=== PATIENT | male | born 1960 | race Caucasian/White ===

== ENCOUNTER 2018-04-23 07:04 | Outpatient (CLI) | payer OTHER, SELFPAY ==
[2018-04-23 07:50] LABS: Hemoglobin A1C 7.2 % (4.5-6.2)
[2018-04-23 08:27] LABS: Anion Gap 9.9 mmol/L (3-11); BUN 17 mg/dL (7-18); CO2 26.1 mmol/L (21.0-32.0); CREATININE 1.25 mg/dL (0.70-1.30); Calcium 9.1 mg/dL (8.5-10.1); Chloride 102 mmol/L (98-107); Estimated GFR 59.32 (mL/min/1.73m2); Glucose 155 mg/dL (70-100); Potassium 4.5 mmol/L (3.5-5.1); Sodium 138 mmol/L (136-145)
== END 2018-04-23 07:24 ==
PROVIDERS: PCP Nurse Practitioner Family; Visit Provider Nurse Practitioner Family
DX: E11.3 Type 2 diabetes mellitus with ophthalmic complications (principal)
CPT/HCPCS: 36415; 80048; 83036

== ENCOUNTER 2018-12-05 11:12 | Outpatient (CLI) | payer OTHER, SELFPAY ==
[2018-12-05 14:14] LABS: Hemoglobin A1C 7.4 % (4.5-6.2)
[2018-12-05 14:39] LABS: ALT 35 U/L (12-78); AST 20 U/L (15-37); Albumin 4.1 g/dL (3.4-5.0); Alkaline Phosphatase 66 U/L (46-116); Anion Gap 9.7 mmol/L (3-11); BUN 12 mg/dL (7-18); Bilirubin, Total 0.3 mg/dL (0.2-1.0); CO2 28.3 mmol/L (21.0-32.0); CREATININE 1.11 mg/dL (0.70-1.30); Chloride 102 mmol/L (98-107); Cholesterol 257 mg/dL (50-200); Glucose 148 mg/dL (70-100); HDL Cholesterol 40 mg/dL (40-60); Potassium 4.3 mmol/L (3.5-5.1); Sodium 140 mmol/L (136-145); Total Protein 8.1 g/dL (6.4-8.2); Triglyceride 434 mg/dL (30-150)
[2018-12-05 14:51] LABS: LDL CHOLESTEROL 154 mg/dL (<100)
== END 2018-12-05 11:32 ==
PROVIDERS: Visit Provider Nurse Practitioner Family
DX: E11.42 Type 2 diabetes mellitus with diabetic polyneuropathy (principal)
CPT/HCPCS: 36415; 80053; 80061; 83721; 83036

== ENCOUNTER 2019-04-25 07:02 | Outpatient (CLI) | payer OTHER, SELFPAY ==
[2019-04-25 07:50] LABS: Hemoglobin A1C 6.5 % (4.5-6.2)
[2019-04-25 08:19] LABS: ALT 28 U/L (16-63); AST 13 U/L (15-37); Albumin 4.1 g/dL (3.4-5.0); Alkaline Phosphatase 59 U/L (46-116); Anion Gap 9.8 mmol/L (3-11); BUN 19 mg/dL (7-18); Bilirubin, Total 0.3 mg/dL (0.2-1.0); CO2 29.2 mmol/L (21.0-32.0); CREATININE 1.29 mg/dL (0.70-1.30); Calcium 9.2 mg/dL (8.5-10.1); Calculated LDL 173 mg/dL; Chloride 103 mmol/L (98-107); Cholesterol 241 mg/dL (50-200); Estimated GFR 57.01 (mL/min/1.73m2); Glucose 115 mg/dL (70-100); HDL Cholesterol 46 mg/dL (40-60); Sodium 142 mmol/L (136-145); Total Protein 8.1 g/dL (6.4-8.2); Triglyceride 113 mg/dL (30-150)
== END 2019-04-25 07:22 ==
PROVIDERS: PCP Nurse Practitioner Family; Visit Provider Nurse Practitioner Family
DX: E11.42 Type 2 diabetes mellitus with diabetic polyneuropathy (principal)
CPT/HCPCS: 36415; 80053; 80061; 83036

== ENCOUNTER 2019-07-28 07:03 | Outpatient (CLI) | payer OTHER, SELFPAY ==
[2019-07-28 08:07] LABS: Creatine Kinase 93 U/L (39-308)
[2019-07-28 08:12] LABS: Hemoglobin A1C 6.7 % (3.8-5.6)
== END 2019-07-28 07:23 ==
PROVIDERS: PCP Nurse Practitioner Family; Visit Provider Nurse Practitioner Family
DX: E78.5 Hyperlipidemia, unspecified (principal); E11.42 Type 2 diabetes mellitus with diabetic polyneuropathy
CPT/HCPCS: 36415; 82550; 83036

== ENCOUNTER 2019-08-01 10:27 | Outpatient (CLI) | payer OTHER, SELFPAY ==
--- NOTE | 2019-08-01 09:45 | DI.RAD_ITS ---
EXAM: XR KNEE LT 3V AP,LAT,LES INDICATION: left knee pain. COMPARISON: No previous for comparison. TECHNIQUE: 2D digital imaging was performed. FINDINGS: There are degenerative changes of the left knee characterized by moderately severe narrowing of the l ateral femoral tibial joint space and periarticular spurring of the patellofemoral joint and the late ral femoral tibial joint. Coarse calcification is seen centrally in the distal shaft of the left fem ur most suggestive of a benign lesion such as an enchondroma or bone infarct. There is a suprapatell ar joint effusion. Vascular calcifications are present. IMPRESSION: Osteoarthritis of the left knee.
--- NOTE | 2019-08-01 09:45 | DI.RAD_ITS ---
EXAM: XR HIP LT 1V INDICATION: left hip pain. COMPARISON: XR HIP RT COMPLETE AP PELVIS from 08/01/2019 TECHNIQUE: 2D digital imaging was performed. FINDINGS: A single view of the left hip was obtained. Degenerative changes are seen of the left hip characteri zed by subchondral sclerosis, periarticular spurring and subchondral cysts. The soft tissues are unr emarkable. IMPRESSION: Degenerative changes of the left hip.
--- NOTE | 2019-08-01 09:45 | DI.RAD_ITS ---
EXAM: XR KNEE RT 3V AP,LAT,LES INDICATION: right knee pain. COMPARISON: No exams were available for comparison TECHNIQUE: 2D digital imaging was performed. FINDINGS: The bones are intact and normally mineralized. The articular surfaces are well maintained. No acute fracture or dislocation is seen. There is a well corticated osseous density medial to the medial f emoral condyle. This likely reflects chronic injury. There is an enthesophyte at the superior sue la. There is a tiny density in the suprapatellar soft tissues on the lateral view. This may represe nt a loose body. Vascular calcifications are seen in the soft tissues. IMPRESSION: 1. No acute abnormality. 2. Density seen in the suprapatellar soft tissues which may represent a loose body.
--- NOTE | 2019-08-01 09:45 | DI.RAD_ITS ---
EXAM: XR HIP RT COMPLETE AP PELVIS INDICATION: right hip pain. COMPARISON: No exams were available for comparison TECHNIQUE: 2D digital imaging was performed. FINDINGS: There are degenerative changes in the hips bilaterally characterized by joint space narrowing, subcho ndral sclerosis and periarticular spurring. The bones are intact. The soft tissues are unremarkable . Vascular calcifications are present.
== END 2019-08-01 10:47 ==
PROVIDERS: PCP Nurse Practitioner Family; Visit Provider Physician Assistant
DX: M25.551 Pain in right hip (principal); M25.552 Pain in left hip; M16.0 Bilateral primary osteoarthritis of hip; M25.561 Pain in right knee; M25.562 Pain in left knee; M25.462 Effusion, left knee; M17.12 Unilateral primary osteoarthritis, left knee; M23.41 Loose body in knee, right knee
CPT/HCPCS: 73562; 73501; 73502

== ENCOUNTER 2020-05-21 22:59 | Emergency (ER) | payer OTHER, SELFPAY ==
--- NOTE | 2020-05-21 00:50 | DI.CT_ITS ---
EXAM: CT BRAIN NECK CTA CLINICAL HISTORY: left posterior neck/head pain. TECHNIQUE: Imaging Protocol: Axial CT angiography was performed with multi-slice acquisition and mu lti-planar and/or 3D reconstructions. CONTRAST MATERIAL: Intravenous: Omnipaque 350 Contrast volume:structured data in ml COMPARISON: No exams were available for comparison FINDINGS: CT angiography of the cervical cranial region was performed according to the usual protocol with intr avenous infusion of 85 cc of Omnipaque 350.. Initial noncontrast scanning of the head is unremarkable. Visualized lung apices are clear. Visualized portions of thoracic aorta and pulmonary arterial circul ation are unremarkable. There is no evidence of a cervical mass or adenopathy. The tracheal laryngeal structures appear intact. The visualized aortic arch appears intact. The common carotid arteries are unremarkable bilaterally except for mild atheromatous calcification of the distal extent of the common carotids bilaterally wi thout stenosis. Internal carotid arteries are of normal diameter except for slight stenosis secondary to calcified at heromatous plaque of the proximal right internal carotid artery, less than 50 percent luminal diamete r stenosis, probably about 20 percent stenosis. The vertebral arteries are unremarkable in appearance in the cervical region with no evidence of aneu rysm, stenosis, or dissection. Intracranial portions of the internal carotid arteries appear normal except for mild atheromatous mian cification in their cavernous portions with no evidence of aneurysm, stenosis, or dissection. Intracranial vertebral arteries and basilar artery appear normal with no evidence of aneurysm, stenos is or dissection. No aneurysm identified in the region of the [id number]. The right anterior cerebral artery is supplied almost entirely across the anterior communicating artery. The right posterior cerebral jerrell ry is supplied almost entirely across the posterior communicating artery. Otherwise the anterior, mi ddle, and posterior cerebral arteries and major branches appear intact with no evidence of aneurysm, stenosis, or dissection. No enhancing brain lesion identified. IMPRESSION: Mild stenosis, less than 50 percent luminal diameter, of proximal right internal carotid artery. Oth erwise negative CT angiography of the cervical cranial region. RADIATION DOSE DELIVERED: 1,352mGy.cmTotal DLP 1,352mGy.cm Total DLP DATA REPOSITORY: All CT scans at this facility are submitted to the National Radiology Data Registry (NRDR) Dose Index Registry (DIR) with the [employer] (A[employer]). RADIATION OPTIMIZATION: All CT scans at this facility use at least one of these dose optimization te chniques: automated exposure control; mA and/or kV adjustment per patient size (includes targeted exa ms where dose is matched to clinical indication); or iterative reconstruction.
[2020-05-21 23:02] VITALS: BP 126/77; PULSE 89; RESP 14; TEMP 36.4; O2SAT 96
--- NOTE | 2020-05-21 23:06 | ED.GENADUL_ITS ---
Discharge Plan Disposition Patient Disposition: HOME Condition: Good Discharge Details Clinical Impression: Neck pain on left side Primary Care Provider: Viri Matos ED Provider: Marcus Roberts Home Meds and New Rx's Prescriptions: New diazepam 5 mg tablet 5 mg PO TID PRN (Reason: muscle spasm) Qty: 10 RF: 0 Continued verapamil 120 MG capsule,ext rel. pellets 24 hr 120 mg PO DAILY RF: 0 clobetasol-emollient 15 GM cream 15 gm Topical BID RF: 0 lamotrigine 25 MG tablet extended release 24hr 25 mg PO BID RF: 0 metformin [Glucophage] 1,000 MG tablet 1,000 mg PO BID RF: 0 atorvastatin 10 mg tablet 10 mg PO DAILY RF: 0 Discharge Instructions Instructions: Neck Pain (ED) Additional Instructions: CT scan looks good. No acute findings and no dissection of arteries. Suspect this is all muscle related as we discussed. Continue lidocaine and acetaminophen. Diazepam if needed for spasm/pain. Follow up with PCP next week. Return to ED if neurological changes, chest pain, other concerns. Referrals: Viri Matos [Primary Care Provider] - Medical Decision Making This is likely left trapzial strain/spasm especially at the insertion. Consider vertebral artery dissection since head/neck movement does not seem to make pain that much more severe. No neurological signs or symptoms. No rash. Will palce IV and get CTA head/neck. Treat with Valium which should not precipitate seizures and should help if related to muscle spasm as suspected. Kidney function is good. CTA head and neck obtained. Noncontrast CT unremarkable. CTA head and neck without significant stenosis, dissection, acute pathology. Patient better with the Valium. Will discharge home with prescription for Valium. Continue Tylenol and lidocaine as before. Follow-up with primary care next week. Return to ED if neurologic changes, chest pain, other concerns. Lab Data Lab results reviewed: Yes I reviewed the patient's lab results. HPI General Mode of arrival: ambulatory . Date/Time Provider Initiated Documentation: 05/21/20 23:06 . Limitations to Documentation: no limitations . Information obtained by: patient, RN notes reviewed and old records reviewed . HPI Narrative: Patient presents to ED with left sided posterior neck and occipital pain. States it started about 10 days ago. No definite injury though with questioning does recall helping a friend list something very heavy into the back of his truck. Patient initially used ibuprofen for about a day until he had a seizure. He reports that NSAIDs and opiates precipitate seizures in him. He has since been using Tylenol with some relief. Tonight very painful and not able to sleep. Rolled on 4% lidocaine before coming in the ED. Some relief with that. Reports pain now just a throbbing toothache like pain. Not made worse with movement of head/neck but is worse with lying down. Heat does not help. No associated neurological symptoms. No illnesses. Has not seen PCP. Related Data Home Medications Medication Instructions Recorded Confirmed metformin [Glucophage] 1,000 mg PO BID 03/12/13 05/21/20 clobetasol-emollient 15 gm TOPICAL BID 11/15/17 05/21/20 lamotrigine 25 mg PO BID 11/15/17 05/21/20 verapamil 120 mg PO DAILY tab-cap 11/15/17 05/21/20 atorvastatin 10 mg PO DAILY 05/21/20 05/21/20 diazepam 5 mg PO TID PRN #10 tab 05/22/20 Previous Rx's Medication Instructions Recorded diazepam 5 mg PO TID PRN #10 tab 05/22/20 Allergies Allergy/AdvReac Type Severity Reaction Status Date / Time Opioids - Morphine Analogues Allergy Intermediate Other (See Unverified 05/21/20 23:09 Comment) lisinopril Allergy Unverified 05/21/20 23:09 NSAIDS (Non-Steroidal Allergy Unverified 05/21/20 23:09 Anti-Inflamma Review of Systems Narrative: As documented in HPI otherwise negative as below. Const: no fever, chills, weakness Resp: no cough, SOB, pleuritic pain CV: no CP, diaphoresis, edema, syncope GI: no abdominal pain, nausea, vomiting, diarrhea Neuro: no numbness, focal weakness, confusion [facility] Medical History (Updated 05/22/20 @ 01:37 by Marcus Roberts MD) Degenerative joint disease of left hip Degenerative joint disease of right hip Diabetes mellitus type 2 HTN (hypertension) Hypercholesterolemia Left knee DJD Most recent Synvisc injection: 08/01/2019 Porphyria cutanea tarda Seizure disorder Alfred's paralysis (postepileptic) Trochanteric bursitis, left hip Most recent injection: 08/01/2019 Trochanteric bursitis, right hip Most recent injection: 08/01/2019 Surgical History Previous back surgery S/P arthroscopic knee surgery Social History Smoking/Tobacco Use Status: Never Smoking risk assessment performed?: Yes Alcohol Intake: current Alcohol Intake frequency: holidays/special occasions only Alcohol type: beer Drug use: Never Substance use type: does not use Do you feel safe at home: Yes Do you feel safe in your relationship?: Yes Exam Narrative Exam Narrative: Const: WDWN middle aged male in NAD. HEENT: NC/AT. Normal facial exam. Eyes: Normal conjunctiva and sclera. PERRL and EOMI. Neck: Supple. Trachea midline. No midline cervical tenderness. Tender to some degree with palpation of left trapezius especially at insertion onto occiput. Lungs: Normal respiratory effort. Cor: Good radial pulses. Neuro: A+O x 3. Normal speech, mentation, gait. Cranial nerves II - XII grossly intact. No gross motor or sensory deficit. Ext: No C/C/E. Skin: Warm and dry without rash.
[2020-05-21] MEDS: diazePAM 5 MG TAB PO (23:36)
[2020-05-22 00:08] LABS: BUN 20 mg/dL (7-18); CREATININE 1.39 mg/dL (0.70-1.30); Estimated GFR 52.12 (mL/min/1.73m2)
[2020-05-22 00:25] VITALS: PULSE 81; RESP 12; O2SAT 96
[2020-05-22] MEDS: Omnipaque 350 MG/ML 100 ML BTL IJ (00:54)
[2020-05-22] MEDS: Normal Saline Flush 10 ML SYR IVP (00:54)
[2020-05-22] MEDS: Normal Saline - Diluent 50 ML VIAL IV (00:55)
--- NOTE | 2020-05-22 01:07 | DI.VRAD_ITS ---
PROCEDURE INFORMATION: Exam: CT Angiography Head Without And With Contrast Exam date and time: 05/21/2020 11:30 PM Age: 59 years old Clinical indication: Other: Left posterior neck/head pain; Additional info: Left posterior head and neck pain >1 week, worsening daily. ? Vertebral artery dissection TECHNIQUE: Imaging protocol: Computed tomographic angiography of the head without and with intravenous contrast. 3D rendering (Not supervised by radiologist): MIP and/or 3D reconstructed images were created by the technologist. Radiation optimization: All CT scans at this facility use at least one of these dose optimization techniques: automated exposure control; mA and/or kV adjustment per patient size (includes targeted exams where dose is matched to clinical indication); or iterative reconstruction. Contrast material: [id number]; Contrast volume: 85 ml; Contrast route: INTRAVENOUS (IV); COMPARISON: CT HEAD WITHOUT STROKE PROTOCOL 06/05/2013 5:10 PM FINDINGS: ANTERIOR CIRCULATION: Right internal carotid artery: Mild vascular calcifications of the right intracranial internal carotid artery without significant stenosis. No occlusion or aneurysm. Right middle cerebral artery: No occlusion or significant stenosis. No aneurysm. Right anterior cerebral artery: The A1 segment of the right anterior cerebral artery is not seen, however suspect this is congenital/developmental given dominant appearance of the left A1 segment. Right anterior cerebral artery is otherwise within normal limits without significant stenosis or occlusion. No aneurysm. Left internal carotid artery: Mild vascular calcifications of the left intracranial internal carotid artery without significant stenosis. No occlusion or aneurysm. Left middle cerebral artery: No occlusion or significant stenosis. No aneurysm. Left anterior cerebral artery: A1 segment appears dominant. No occlusion or significant stenosis. No aneurysm. POSTERIOR CIRCULATION: Right vertebral artery: No occlusion or significant stenosis. No aneurysm. Left vertebral artery: No occlusion or significant stenosis. No aneurysm. Basilar artery: No occlusion or significant stenosis. No aneurysm. Right posterior cerebral artery: No occlusion or significant stenosis. No aneurysm. Left posterior cerebral artery: No occlusion or significant stenosis. No aneurysm. HEAD: Brain: Unremarkable. No acute intracranial hemorrhage. No significant white matter disease. No edema. Cerebral ventricles: Normal. No ventriculomegaly. Bones/joints: Unremarkable. No acute fracture. Paranasal sinuses: Visualized sinuses are normal. No fluid levels. Mastoid air cells: Visualized mastoids are normal. No mastoid effusion. Soft tissues: Unremarkable. IMPRESSION: 1. No acute intracranial finding. 2. 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 Remainder of the right anterior cerebral artery otherwise within normal limits. PROCEDURE INFORMATION: Exam: CT Angiography Neck With Contrast Exam date and time: 05/21/2020 11:30 PM Age: 59 years old Clinical indication: Other: Left posterior neck/head pain; Additional info: Left posterior head and neck pain >1 week, worsening daily. ? Vertebral artery dissection TECHNIQUE: Imaging protocol: Computed tomography angiography of the neck with intravenous contrast. 3D rendering (Not supervised by radiologist): MIP and/or 3D reconstructed images were created by the technologist. Radiation optimization: All CT scans at this facility use at least one of these dose optimization techniques: automated exposure control; mA and/or kV adjustment per patient size (includes targeted exams where dose is matched to clinical indication); or iterative reconstruction. Contrast material: [id number]; Contrast volume: 85 ml; Contrast route: INTRAVENOUS (IV); COMPARISON: CT HEAD WITHOUT STROKE PROTOCOL 06/05/2013 5:10 PM FINDINGS: Right common carotid artery: No stenosis. No dissection or occlusion. Right internal carotid artery: Vascular calcifications of the right carotid bulb cause mild stenosis of the proximal right internal carotid artery with vessel lumen diameter measuring 2.9 mm with normal vessel lumen diameter distally 3.9 mm for a vessel lumen diameter reduction of approximately 26 %. Right external carotid artery: No occlusion or stenosis of the origin. Right vertebral artery: No stenosis. No dissection or occlusion. Left common carotid artery: Punctate focal calcification within the left common carotid artery. No stenosis, occlusion, or dissection. Left internal carotid artery: Vascular calcifications at the left carotid bulb cause mild relative narrowing of the proximal left internal carotid artery however without significant stenosis. No dissection or occlusion. Left external carotid artery: No occlusion or stenosis of the origin. Left vertebral artery: No stenosis. No dissection or occlusion. Retropharyngeal space: Within normal limits. Thyroid: No mass. Bones/joints: No acute fracture. Soft tissues: Normal. No significant soft tissue swelling. Lymph nodes: No pathologically enlarged lymph nodes. IMPRESSION: 1. No vertebral artery dissection. 2. Mild stenosis of the proximal right internal carotid artery. REFERENCES: NASCET CRITERIA. The degree of internal carotid artery stenosis is based on NASCET criteria. Normal is no stenosis. Mild is less than 50% stenosis. Moderate is 50-69% stenosis. Severe is 70% to 99% stenosis. Total occlusion is no detectable patent lumen. Dictated and Authenticated by: Jeronimo Dhillon MD. Ordering:VIKI Velazquez MD
[2020-05-22 01:47] VITALS: BP 133/75; PULSE 74; RESP 14; O2SAT 96
== END 2020-05-22 01:50 | disposition home or self-care (01) ==
PROVIDERS: Emergency Provider Emergency Medicine; PCP Nurse Practitioner Family
DX: M62.838 Other muscle spasm (principal); M54.2 Cervicalgia; E11.9 Type 2 diabetes mellitus without complications; I10 Essential (primary) hypertension
CPT/HCPCS: 36415; 70496; 70498; 84520; 96360; 96361; 99285; 82565; 99284; J3490

== ENCOUNTER 2021-01-12 03:36 | Outpatient (CLI) | payer OTHER, SELFPAY ==
[2021-01-12 08:09] LABS: Abs Immature Grans 0.02 10^3/uL (0.0-0.06); Absolute Basophil Count 0.02 10^3/uL (0.0-0.2); Absolute Eosinophil Count 0.13 10^3/uL (0.0-0.7); Absolute Lymphocyte Count 1.54 10^3/uL (1.2-3.4); Absolute Monocyte Count 0.34 10^3/uL (0.1-0.8); Basophils % 0.4; Eosinophils % 2.6; HCT 36.5 % (40.0-50.0); HGB 12.6 g/dL (13.5-17.5); Immature Grans % 0.4; Lymphocytes % 30.5; MCH 36.2 pg (27.0-33.0); MCHC 34.5 % (32.0-36.0); MCV 104.9 fL (80-95); Monocytes % 6.7; Neutrophils % 59.4; Nucleated RBC 0 %; Platelet Count 268 10^3/uL (130-400); RBC 3.48 10^6/uL (4.36-5.78); RDW 11.6 % (11.8-14.1); RDW-SD 44.7 fL; WBC 5.05 10^3/uL (4.4-10.8)
[2021-01-12 09:29] LABS: PROTEIN 22.7 mg/dL
[2021-01-12 09:30] LABS: COMMENT (LAB VIEW ONLY) 62.64 mg/dL; Prot/Crea Ur Ratio 0.36
[2021-01-12 09:43] LABS: ALT 27 U/L (16-63); AST 16 U/L (15-37); Albumin 4.1 g/dL (3.4-5.0); Alkaline Phosphatase 58 U/L (46-116); Anion Gap 9.2 mmol/L (3-11); BUN 25 mg/dL (7-18); Bilirubin, Total 0.4 mg/dL (0.2-1.0); CO2 27.8 mmol/L (21.0-32.0); CREATININE 1.3 mg/dL (0.70-1.30); Calculated LDL 105 mg/dL (<100); Chloride 102 mmol/L (98-107); Cholesterol 215 mg/dL (<200); Estimated GFR 56.12 (mL/min/1.73m2); Glucose 161 mg/dL (74-106); HDL Cholesterol 42 mg/dL (40-60); Sodium 139 mmol/L (136-145); TSH 1.62 uIU/mL (0.36-3.74); Total Protein 7.7 g/dL (6.4-8.2); Triglyceride 340 mg/dL (<150)
[2021-01-12 17:05] LABS: PSA, Screening 0.4 ng/mL (0.0-4.5)
[2021-01-13 01:42] LABS: Vitamin D 25 Total 24.2 ng/mL (30-100)
== END 2021-01-12 03:37 | disposition home or self-care (01) ==
LOC: LBO 03:36
PROVIDERS: PCP Nurse Practitioner Family; Visit Provider Nurse Practitioner Family
DX: Z00.01 Encounter for general adult medical examination with abnormal findings (principal); Z12.5 Encounter for screening for malignant neoplasm of prostate
CPT/HCPCS: 36415; 80053; 80061; 82306; 84153; 82565; 84156; 84443; 85025

== ENCOUNTER 2021-02-16 01:44 | Outpatient (CLI) | payer OTHER, SELFPAY ==
--- NOTE | 2021-02-16 10:30 | DI.US_ITS ---
APPROVED REPORT EXAM: Comprehensive 2D, Doppler, and color-flow Echocardiogram Patient Location: Out-Patient [employer] Powerplant Repairer: Mary Hoff RDCS (AE) Indications: Heart murmur Other Information Study Quality: Adequate Conclusion Left Ventricle : The left ventricle is normal size. The left ventricular ejection fraction is within the normal range. There is normal left ventricular wall thickness. There is normal LV segmental wall motion. The left ventricular diastolic function is normal. LVEF is 60%. Right Ventricle : The right ventricle is normal size. The right ventricular systolic function is norm al. Aortic Valve : Aortic valve is calcified. Number of aortic valve leaflets could not be assessed. No a ortic regurgitation is present. Moderate aortic stenosis. Peak aortic valve gradient is 37mmHg. Highe st mean aortic valve gradient is 25mmHg. Calculated RAY by the continuity equation is .97cm2. Mitral Valve : Mild mitral annular calcification. Mitral valve leaflets are calcified. Mitral valve l eaflets open well. Trace mitral regurgitation. No evidence of mitral valve stenosis. Great Vessels : The aortic root is normal in size. The ascending aorta is normal in size. Aortic arch is normal in caliber. IVC is normal in size and collapses >50% with inspiration. Wall motion Left Ventricle The left ventricle is normal size. The left ventricular ejection fraction is within the normal range. There is normal left ventricular wall thickness. There is normal LV segmental wall motion. The left ventricular diastolic function is normal. There is no ventricular septal defect visualized. LVEF is 6 0%. Right Ventricle The right ventricle is normal size. The right ventricular systolic function is normal. Atria The left atrium size is normal. The right atrium size is normal. The interatrial septum is intact wit h no evidence for an atrial septal defect. Aortic Valve Aortic valve is calcified. Number of aortic valve leaflets could not be assessed. Moderate aortic priscila nosis. Peak aortic valve gradient is 37mmHg. Highest mean aortic valve gradient is 25mmHg. Calculated RAY by the continuity equation is .97cm2. No aortic regurgitation is present. Mitral Valve Mild mitral annular calcification. Mitral valve leaflets are calcified. Mitral valve leaflets open we ll. No evidence of mitral valve stenosis. Trace mitral regurgitation. Tricuspid Valve The tricuspid valve is normal in structure. There is no tricuspid valve stenosis. Trace tricuspid reg urgitation. Unable to assess PA pressure. Pulmonic Valve The pulmonary valve is normal in structure. There is no pulmonic valvular stenosis. There is no pulmo shravan valvular regurgitation. Great Vessels The aortic root is normal in size. The ascending aorta is normal in size. Aortic arch is normal in ca liber. IVC is normal in size and collapses >50% with inspiration. Pericardium There is no pericardial effusion. 2D Dimensions IVSD d PLAX 1.16 cm M: 0.6-1.2 LV Vol A2C d MOD 131.7 mL LVPW d PLAX 1.12 cm M: 0.6 - 1.2 LV Vol A4C d MOD 132.8 mL LVID d PLAX 4.29 cm M: 4.2 - 5.8 LA vol/ BSA A2C s A-L 27.5 mL/m2 LVDs 2.90 cm M: 2.5 - 4.0 LA vol/ BSA A4C s A-L 19.2 mL/m2 Ao Root d 2.97 cm M: 3.1 - 3.7 LA Vol/ BSA Biplane s A-L 23.9 mL/m2 RA Area A4C 13.89 cm2 LA Area A4C s MOD 16.25 cm2 RA Vol/ BSA A4C s A-L 16.7 mL/m2 LA Area A2C s MOD 20.24 cm2 Ao Asc Diam d 2.83 cm M: 2.6 - 3.4 LV EF A4C MOD 60.7 % LV EF Teichholz 60.8 % LV EF A2C MOD 59.1 % LVEF (Sotelo's) 59.54 % M: 52 - 72 LV EF Biplane MOD 59.5 % LV Volume 94.93 mL M: 62 - 150 SV 78.86 mL LV Volume Index 41.27 mL/m2 M: 34 - 74 SV Index 34.18 mL/m2 LV Vol Biplane MOD 132.5 mL FS 32.25 % M-Mode TAPSE 2.28 cm (M/F) >1.7 LV Diastology MV E' medial 0.078 (>0.07 m/s) E/A Ratio 1.1 LV E/e MED 10.25 (<14) MV E Vmax 0.80 (0.4-1.3 m/s) MV E' lateral 0.076 (>0.1 m/s) MV A Vmax 0.70 (0.4-1.3 m/s) LV E/e LAT 10.60 (<14) MV E/A Ratio 1.08 MV E/E' medial 10.27 MV E/E' lateral 10.60 Aortic Valve LVOT Area 3.45 cm2 AoV Area Vmax 0.97 cm2 LVOT Vmax 0.87 m/s AoV Area/ BSA (Vmax) 0.42 cm2/m2 LVOT Mean Mack. 0.62 m/s RAY Mean Mack. 0.89 cm2 LVOT Peak Grad 3.0 mmHg RAY Mean Mack. Index 0.39 cm2/m2 LVOT Mean Grad 1.7 mmHg LVOT VTI 0.211 m LVOT Diam s 2.05 cm AoV Vmax 3.07 m/s Velocity Ratio 0.28 AoV Mean Mack. 2.41 m/s AoV Peak Grad 37.6 mmHg LVOT SV 72.73 mL AoV Mean Grad 24.7 mmHg AoV VTI 0.709 m AoV Area VTI 1.03 cm2 AoV Area/ BSA (VTI) 0.44 cm/m2 Mitral Valve MV DT 262 (160-240 msec) MV PHT 76 msec MV Area PHT 2.89 cm2 MV VTI 0.316 m MV Area VTI 2.30 (4.0-6.0 cm2) Pulmonary Valve PV Vmax 1.11 (0.5-1.5 m/s) RVOT Peak Gr. 1.51 mmHg PV Peak Grad 4.9 mmHg RVOT Mean Gr. 0.85 mmHg PV Mean Grad 2.7 mmHg RVOT VTI 0.132 m PV VTI 0.234 m RVOT Vmax 0.61 m/s
== END 2021-02-16 02:04 ==
PROVIDERS: PCP Nurse Practitioner Family; Visit Provider Nurse Practitioner Family
DX: R01.1 Cardiac murmur, unspecified (principal); I35.8 Other nonrheumatic aortic valve disorders; I35.0 Nonrheumatic aortic (valve) stenosis; I34.8 Other nonrheumatic mitral valve disorders
CPT/HCPCS: 93306

== ENCOUNTER 2021-03-03 08:51 | Outpatient (CLI) | payer OTHER, SELFPAY ==
--- NOTE | 2021-03-03 08:45 | RT.EKG_ITS ---
APPROVED REPORT Exam: Resting ECG Reason for Exam: aortic stenosis Patient Location: O HR:78 bpm ECG Measurements Heart Rate 78 AXIS LA 145 P 46 QRSd 89 QRS 26 QT 384 T 38 QTc 438 Conclusion Sinus rhythm...normal P axis, V-rate 50- 99 Normal Electrocardiogram
== END 2021-03-03 08:52 | disposition home or self-care (01) ==
LOC: DI.CARD 08:53
PROVIDERS: PCP Internal Medicine; Visit Provider Internal Medicine Cardiovascular Disease
DX: I35.0 Nonrheumatic aortic (valve) stenosis (principal)
CPT/HCPCS: 93010

== ENCOUNTER 2021-05-10 03:57 | Outpatient (CLI) | payer OTHER, SELFPAY ==
[2021-05-10 08:14] LABS: Hemoglobin A1C 7.2 % (<5.7)
== END 2021-05-10 03:58 | disposition home or self-care (01) ==
LOC: LBO 03:57
PROVIDERS: PCP Internal Medicine; Visit Provider Nurse Practitioner Primary Care
DX: E11.9 Type 2 diabetes mellitus without complications (principal)
CPT/HCPCS: 36415; 83036